=== PATIENT | female | born 1995 | race African-American/Black ===

== ENCOUNTER 2016-09-27 15:44 | Emergency (ER) | payer SELFPAY ==
[2016-09-27 16:05] VITALS: TEMP 98.4; BMI 28.6
--- NOTE | 2016-09-27 16:32 | PDOC ---
[id number] ABD PAIN Time Seen by Provider: 09/27/16 16:22 Past History - Past Medical History Allergies/Adverse Reactions: Allergies Allergy/AdvReac Type Severity Reaction Status Date / Time No Known Allergies Allergy Verified 09/27/16 16:02 Home Medications: Ambulatory Orders NK [No Known Home Medication] 12/03/14 Anemia: No Asthma: No Cancer: No Cardiac Disorders: No Diabetes: No HTN: No Seizures: No Thyroid Disease: No - Reproductive History (#): 1 Para: 0 Therapeutic (s) & number: No Spontaneous : 0 - Immunization History Immunization Up to Date: Yes - Psycho/Social/Smoking Cessation Hx Anxiety: No Suicidal Ideation: No Smoking Status: No Smoking History: Never smoked Have you smoked in the past 12 months: No Number of Cigarettes Smoked Daily: 0 Hx Alcohol Use: No Drug/Substance Use Hx: No Substance Use Type: None Hx Substance Use Treatment: No *Physical Exam - Vital Signs Last Vital Signs Temp Pulse Resp BP Pulse Ox 98.4 F 99 H 18 130/68 100 09/27/16 16:02 09/27/16 16:02 09/27/16 16:02 09/27/16 16:02 09/27/16 16:02 - Physical Exam General Appearance: Yes: Nourished HEENT: positive: Normal Voice Neck: positive: Supple Respiratory/Chest: positive: Lungs Clear Cardiovascular: positive: Regular Rhythm, Regular Rate Female Pelvic Exam: positive: vaginal bleeding Musculoskeletal: positive: Normal Inspection Extremity: positive: Normal Inspection, Normal Range of Motion Integumentary: positive: Normal Color, Warm Neurologic: positive: Fully Oriented, Alert, Normal Response, Motor Strength 5/5 ED Treatment Course - LABORATORY CBC & Chemistry Diagram: 09/27/16 17:50 09/27/16 17:50 Medical Decision Making - Medical Decision Making 09/29/16 03:14 The resident on this case was Dr Mike Rodríguez. 21-year-old female presents with some pelvic pain. She was found to be with beta-hCG 252. She had a pelvic ultrasound that showed a thickened endometrial stripe Impression was early . It was explained to the patient that she needs to have her beta hCG and ultrasound repeated in 48 hours 09/29/16 03:17 *DC/Admit/Observation/Transfer Diagnosis at time of Disposition: Threatened in early - Discharge Dispostion Disposition: HOME Condition at time of disposition: Stable - Patient Instructions Printed Discharge Instructions: DI for Threatened Additional Instructions: please have a repeat bhcg in 48 hours
--- NOTE | 2016-09-27 17:06 | PDOC ---
History of Present Illness - General Chief Complaint: Vaginal Bleeding Stated Complaint: ABD PAIN Time Seen by Provider: 09/27/16 16:22 History Source: Patient Exam Limitations: No Limitations - History of Present Illness Initial Comments: 21 yo F presented to the ED with vaginal spotting and LLQ pain x 3 days. The pain started without any prodrome in LLQ, 7/10, radiates to mid-back, stabbing like, intermittent. Her LMP was ~4/5. She stated that she noticed bloody discharge 3 days ago without any itchiness, foul smell discharge, bumps around labia. She's been with the same male sex partner for 4 months without protection. She further denies fever, chills, hematuria, h/o kidney stone. Past History - Past Medical History Allergies/Adverse Reactions: Allergies Allergy/AdvReac Type Severity Reaction Status Date / Time No Known Allergies Allergy Verified 09/27/16 16:02 Home Medications: Ambulatory Orders NK [No Known Home Medication] 12/03/14 Anemia: No Asthma: No Cancer: No Cardiac Disorders: No Diabetes: No HTN: No Seizures: No Thyroid Disease: No - Reproductive History (#): 1 Para: 0 Therapeutic (s) & number: No Spontaneous : 0 - Immunization History Immunization Up to Date: Yes - Psycho/Social/Smoking Cessation Hx Anxiety: No Suicidal Ideation: No Smoking Status: No Smoking History: Never smoked Have you smoked in the past 12 months: No Number of Cigarettes Smoked Daily: 0 Hx Alcohol Use: No Drug/Substance Use Hx: No Substance Use Type: None Hx Substance Use Treatment: No Review of Systems - Review of Systems Able to Perform ROS?: Yes Is the patient limited Kazakh proficient: No Constitutional: No: Chills, Fever Respiratory: No: Cough, Shortness of Breath Cardiac (ROS): No: Chest Pain ABD/GI: Yes: Abdominal cramping : Yes: Discharge. No: Burning, Dysuria, Hematuria, Lesions Musculoskeletal: Yes: Back Pain Integumentary: No: Rash Neurological: Yes: Headache *Physical Exam - Vital Signs Last Vital Signs Temp Pulse Resp BP Pulse Ox 98.4 F 99 H 18 130/68 100 09/27/16 16:02 09/27/16 16:02 09/27/16 16:02 09/27/16 16:02 09/27/16 16:02 - Physical Exam General Appearance: No: Apparent Distress Respiratory/Chest: positive: Lungs Clear, Normal Breath Sounds Cardiovascular: positive: Regular Rhythm, Regular Rate, S1, S2. negative: Murmur Gastrointestinal/Abdominal: positive: Tenderness (LLQ). negative: Distended, Guarding, Rebound Musculoskeletal: negative: CVA Tenderness Neurologic: positive: Fully Oriented, Alert ED Treatment Course - LABORATORY CBC & Chemistry Diagram: 09/27/16 17:50 09/27/16 17:50 Medical Decision Making - Medical Decision Making 09/27/16 17:09 Will obtain UA first to r/o *DC/Admit/Observation/Transfer Diagnosis at time of Disposition: Threatened in early - Discharge Dispostion Disposition: HOME Condition at time of disposition: Stable Admit: No - Patient Instructions Printed Discharge Instructions: DI for Threatened Additional Instructions: please have a repeat bhcg in 48 hours
[2016-09-27] MEDS ORDERED: ACETAMINOPHEN 325 MG TABLET (FP) PO ONE (17:52)
[2016-09-27 17:57] LABS: URINE APPEARANCE CLEAR; URINE BILIRUBIN NEGATIVE (NEGATIVE); URINE BLOOD NEGATIVE (NEGATIVE); URINE COLOR LTYELLOW; URINE GLUCOSE (UA) NEGATIVE (NEGATIVE); URINE KETONE NEGATIVE (NEGATIVE); URINE LEUK ESTERASE NEGATIVE (NEGATIVE); URINE NITRITE NEGATIVE (NEGATIVE); URINE PROTEIN NEGATIVE (NEGATIVE); URINE UROBILINOGEN NEGATIVE E.U./dl (0.2-1.0)
[2016-09-27 18:05] LABS: BASOPHIL 0.3 % (0-2.0); EOSINOPHIL 3.2 % (0-4.5); MCH 31.8 pg (25.7-33.7); MCHC 32.7 g/dl (32.0-36.0); MEAN CELL VOLUME 97.5 fl (80-96); MEAN PLT VOLUME 9.6 fl (7.5-11.1); NEUTROPHILS 64.9 % (42.8-82.8); PLATELET COUNT 219 K/MM3 (134-434); RDW 14.7 % (11.6-15.6); WHITE BLOOD COUNT 9.3 K/mm3 (4.0-10.0)
[2016-09-27] MEDS ORDERED: ACETAMINOPHEN 325 MG TABLET (FP) ONE (18:07)
[2016-09-27 18:17] LABS: INR 1.05 (0.82-1.09); PROTHROMBIN TIME (PATIENT) 11.6 SEC (9.98-11.88)
[2016-09-27 18:47] LABS: ALBUMIN 3.7 g/dl (3.4-5.0); ALK PHOS 48 U/L (45-117); ANION GAP 11 (8-16); BILIRUBIN,TOTAL 0.2 mg/dL (0.2-1.0); CALCIUM 8.6 mg/dL (8.5-10.1); CO2 21 mmol/L (21-32); COCKROFT - GAULT 149.515; CREATININE 0.6 mg/dL (0.55-1.02); GLUCOSE,RANDOM 92 mg/dL (74-106); SGOT/AST 15 U/L (15-37); SGPT/ALT 20 U/L (12-78); TOT PROT 6.9 g/dl (6.4-8.2)
[2016-09-28 05:38] VITALS: BP 126/65; PULSE 87
== END 2016-09-27 21:35 | disposition home or self-care (01) ==
LOC: JER 15:44
DX: O20.0 Threatened abortion (principal); Z3A.01 Less than 8 weeks gestation of pregnancy
CPT/HCPCS: 36415; 76817-TC; 80053; 81003; 84702; 84703; 85025; 85610; 86850; 86900; 86901; 99282-25

== ENCOUNTER 2021-12-29 12:35 | Emergency (ER) | payer OTHER ==
[2021-12-29 12:57] VITALS: BP 113/75; PULSE 100; RESP 20; TEMP 98.1; BMI 34.9
[2021-12-29 14:03] LABS: HCG,QUALITATIVE URINE Positive
[2021-12-29 14:05] LABS: EPI CELLS >36 /uL (0-25.1); HYALINE CASTS 2 /uL (0-3.1); PH,URINE 6.5 (5.0-8.0); URINE APPEARANCE CLOUDY; URINE BACTERIA 2042 /uL (0-1359); URINE BILIRUBIN NEGATIVE (NEGATIVE); URINE COLOR YELLOW; URINE GLUCOSE (UA) NEGATIVE (NEGATIVE); URINE KETONE 1+ (NEGATIVE); URINE LEUK ESTERASE 1+ (NEGATIVE); URINE NITRITE NEGATIVE (NEGATIVE); URINE PROTEIN NEGATIVE (NEGATIVE); URINE RBC 15 /uL (0-23.9); URINE WBC 42 /uL (0-25.8)
[2021-12-29] MEDS ORDERED: ACETAMINOPHEN 500 MG TABLET (FP) PO ONE (14:13)
[2021-12-29] MEDS ORDERED: ACETAMINOPHEN 500 MG TABLET (FP) ONE (14:15)
== END 2021-12-29 14:17 | disposition home or self-care (01) ==
LOC: JERFT 12:35
DX: O23.41 Unspecified infection of urinary tract in pregnancy, first trimester (principal); Z3A.01 Less than 8 weeks gestation of pregnancy
CPT/HCPCS: 81003; 84703; 87086; 99283-25

== ENCOUNTER 2022-01-14 11:18 | Emergency (ER) | payer OTHER ==
[2022-01-14 11:31] VITALS: BP 123/74; PULSE 96; RESP 18; TEMP 98; BMI 35.1
[2022-01-14 13:35] LABS: BASO % 1.2 % (0-2.0); EOS % 1.3 % (0-4.5); HEMATOCRIT 38.4 % (32.4-45.2); HEMOGLOBIN 12.8 GM/dL (10.7-15.3); MCH 32.3 pg (25.7-33.7); MCHC 33.2 g/dl (32.0-36.0); MEAN CELL VOLUME 97.3 fl (80-96); MEAN PLT VOLUME 9.4 fl (7.5-11.1); NEUT % 68.5 % (42.8-82.8); PLATELET COUNT 314 10^3/uL (134-434); RBC 3.94 M/mm3 (3.60-5.2); RDW 15.1 % (11.6-15.6); WHITE BLOOD COUNT 7.6 K/mm3 (4.0-10.0)
[2022-01-14 13:36] LABS: HCG,QUALITATIVE URINE Positive
[2022-01-14 13:39] LABS: EPI CELLS >36 /uL (0-25.1); HYALINE CASTS 1 /uL (0-3.1); URINE APPEARANCE CLEAR; URINE BACTERIA 1060 /uL (0-1359); URINE BILIRUBIN NEGATIVE (NEGATIVE); URINE COLOR YELLOW; URINE GLUCOSE (UA) NEGATIVE (NEGATIVE); URINE KETONE NEGATIVE (NEGATIVE); URINE LEUK ESTERASE 2+ (NEGATIVE); URINE NITRITE NEGATIVE (NEGATIVE); URINE PROTEIN NEGATIVE (NEGATIVE); URINE RBC 14 /uL (0-23.9); URINE UROBILINOGEN 0.2 mg/dL (0.2-1.0); URINE WBC 50 /uL (0-25.8)
[2022-01-14 13:40] LABS: INR 1.01 (0.83-1.09); PROTHROMBIN TIME (PATIENT) 11.6 SEC (9.7-13.0)
[2022-01-14 13:43] LABS: ACTIVATED PTT 29.6 SECONDS (25.2-36.5)
[2022-01-14] MEDS ORDERED: CEPHALEXIN MONOHYDRATE 500 MG CAPSULE (UD) PO ONE (13:44)
[2022-01-14] MEDS ORDERED: CEPHALEXIN MONOHYDRATE 500 MG CAPSULE (UD) ONE (13:47)
[2022-01-14 14:01] LABS: BLOOD UREA NITROGEN 9.8 mg/dL (7-18)
[2022-01-14 14:02] LABS: ALBUMIN 3.7 g/dl (3.4-5.0)
[2022-01-14 14:05] LABS: CREATININE 0.6 mg/dL (0.55-1.3)
[2022-01-14 14:06] LABS: BILIRUBIN,TOTAL 0.6 mg/dL (0.2-1); TOT PROT 7.2 g/dl (6.4-8.2)
== END 2022-01-14 17:27 | disposition home or self-care (01) ==
LOC: JERFT 11:18
DX: O23.91 Unspecified genitourinary tract infection in pregnancy, first trimester (principal); O26.851 Spotting complicating pregnancy, first trimester; Z3A.01 Less than 8 weeks gestation of pregnancy
CPT/HCPCS: 36415; 76817-TC; 80053; 81003; 84702; 84703; 85025; 85610; 85730; 86850; 86900; 86901; 87086; 99284-25

== ENCOUNTER 2025-03-03 13:45 | Emergency (ER) | payer OTHER ==
[2025-03-03 13:49] VITALS: TEMP 98.2; BMI 36.3
[2025-03-03] MEDS ORDERED: ACETAMINOPHEN INJECTION 100 ML ONE (14:18)
[2025-03-03] MEDS: ACETAMINOPHEN 1000 MG/100 ML BAG IVPB ONE (14:24)
[2025-03-03 14:26] LABS: ABSOLUTE IMMATURE GRANULOCYTES 0.03 x10^3/uL (0.0-0.031); BASOPHILS # 0.03 x10^3/uL (0.01-0.08); EOSINOPHIL % 1.4 % (0.7-5.8); EOSINOPHILS # 0.14 x10^3/uL (0.04-0.36); MCHC 32.6 g/dl (32.2-35.5); MEAN CELL VOLUME 98.1 fl (79.4-94.8); MEAN PLT VOLUME 10.7 fl (9.4-12.3); MONOCYTE # 0.46 x10^3/uL (0.24-0.86); MONOCYTE % 4.5 % (4.7-12.5); RDW 12.6 % (12.1-16.5)
[2025-03-03 14:43] LABS: GLUCOSE,RANDOM 83.0 mg/dL (74-106)
[2025-03-03 14:44] LABS: TOT PROT 7.1 g/dl (6.4-8.2)
[2025-03-03 14:45] LABS: CO2 23.0 mmol/L (21-32)
[2025-03-03 14:46] LABS: ALK PHOS 42.0 U/L (40-150)
[2025-03-03 14:49] LABS: CREATININE 0.58 mg/dL (0.55-1.3); SGOT/AST 26.0 U/L (5-34); SGPT/ALT 17.0 U/L (0-55)
[2025-03-03 14:56] LABS: URINE APPEARANCE CLEAR; URINE BILIRUBIN NEGATIVE (NEGATIVE); URINE COLOR YELLOW; URINE GLUCOSE (UA) NEGATIVE (NEGATIVE); URINE KETONE 1+ (NEGATIVE)
[2025-03-03 14:57] LABS: URINE LEUK ESTERASE NEGATIVE (NEGATIVE); URINE NITRITE NEGATIVE (NEGATIVE); URINE PROTEIN NEGATIVE (NEGATIVE); URINE UROBILINOGEN 0.2 mg/dL (0.2-1.0)
[2025-03-03 15:10] LABS: HCV DIAGNOSTIC IN-HOUSE W/RFLX NON-REACTIVE (NONREACTIVE); HIV INTERPRETATION NEGATIVE (NEGATIVE)
[2025-03-03] MEDS ORDERED: KETOROLAC TROMETHAMINE 30 MG/1 ML VIAL ONE (16:04)
[2025-03-03] MEDS: KETOROLAC TROMETHAMINE 30 MG/1 ML VIAL IVPUSH ONE (16:07)
[2025-03-03 17:37] VITALS: BP 125/84; PULSE 84; RESP 18
== END 2025-03-03 17:41 | disposition home or self-care (01) ==
LOC: JER 13:45
PROC: 3E033NZ Introduction of Analgesics, Hypnotics, Sedatives into Peripheral Vein, Percutaneous Approach (ICD-10-PCS; principal; 2025-03-03)
PROC: 3E0333Z Introduction of Anti-inflammatory into Peripheral Vein, Percutaneous Approach (ICD-10-PCS; 2025-03-03)
DX: D25.9 Leiomyoma of uterus, unspecified (principal); R19.7 Diarrhea, unspecified; R10.31 Right lower quadrant pain; R10.32 Left lower quadrant pain
CPT/HCPCS: 36415; 74177-TC; 80053; 81003; 83690; 84703; 85025; 86803; 87086; 87389; 99285-25; Q9967